=== PATIENT | female | born 1955 | race Caucasian/White ===

== ENCOUNTER 2018-06-16 14:56 | Inpatient (IN) ==
[2018-06-16] MEDS ORDERED: Sodium Chloride 0.9% 1,000 ML PRIMARY IV ONE (15:16)
--- NOTE | 2018-06-16 15:19 | PDOC ---
Nausea/Vomiting/Diarrhea HPI - General Chief Complaint: Nausea / Vomiting / Diarrhea Stated Complaint: nausea, vomiting, diarrheh Date Seen by Provider: 06/16/18 Time Seen by Provider: 15:10 Source: POSITIVE: Patient, EMS Exam Limitations: POSITIVE: No limitations Nurse's Notes Reviewed & Considered: Yes EMS Report Reviewed & Considered: Verbal - History of Present Illness Initial Comments: The patient is a 62-year-old female who presents to the emergency department by ambulance with complaints of nausea, vomiting and general malaise. The patient states that she has not felt well for the past 3 or 4 days. She had onset of nausea and vomiting associated with diarrhea on Tuesday. This has persisted for the last several days. She has been unable to take any of her medications including her insulin the past several days. She also has developed significant headache. She reports generalized weakness and malaise. She has had subjective fevers and chills. She denies urinary symptoms. She underwent hip replacement surgery in [place] which was a revision surgery in April and subsequently had developed a wound infection. She had been on antibiotics for 2-3 week period of time after that. She seemed to have recovered from that episode. She has continued pain in her lower back which is chronic as well as some continued pain in her right hip. She denies chest pain or shortness of breath or focal numbness or weakness in her extremities other than generalized weakness. - Patient Home Medications Home Medications: Home Medications Amlodipine Besylate 10 mg PO DAILY #30 tab 11/14/17 Chlorthalidone 25 mg PO DAILY #30 tab 11/14/17 Polyeth Glycol 3350 Packet [Miralax Packet] 17 gm PO DAILY #30 powd.pack 11/14/17 losartan 100 mg tablet 100 mg PO DAILY #90 tab 11/21/17 famotidine 20 mg tablet 20 mg PO BID 05/25/18 hydralazine 100 mg tablet 100 mg PO TID 05/25/18 insulin glargine (U-100) 100 unit/mL (3 mL) subcutaneous pen 6 unit SUBCUT BEDTIME ml 05/25/18 methocarbamol 750 mg tablet 750 mg PO BID tab 05/25/18 metoclopramide 10 mg tablet 10 mg PO Q6H PRN 05/25/18 nebivolol 20 mg tablet 20 mg PO QDAY 05/25/18 oxycodone 5 mg tablet 5 mg PO Q4-6H PRN #90 tab 05/25/18 venlafaxine 75 mg tablet 75 mg PO BID 05/25/18 Morphine Sulfate ER [MS Contin] 30 mg PO BID PRN 06/16/18 Venlafaxine HCl [Venlafaxine HCl ER] 150 mg PO DAILY 06/16/18 - Patient Allergies Allergies/Adverse Reactions: Allergies Allergy/AdvReac Type Severity Reaction Status Date / Time pregabalin [From Lyrica] Allergy SWELLING Verified 06/16/18 15:30 Past Medical History - heen HEENT History: Denies History Cardiovascular History: Hypertension Respiratory History: Denies History Gastrointestinal History: Gallbladder Disease Genitourinary History: Denies History Endocrine History: Type 2 Diabetes (insulin) Additional Endocrine History: sliding scale Musculoskeletal History: Back Pain, Back Injury, Other (please comment) Prosthesis or Implant: No Additional Musculoskeletal History: fx right humerous 2014 Neurological History: Denies History Blood Disorders: Denies History Psychiatric History: Depression, Anxiety Disorders History of Sexually Transmitted Diseases: No Cancer History: Denies History History of MDRO: No History of Other Communicable Diseases: No Alcohol Use: Rarely In the Past 12 Months, Have Used or Abuse Any Substance: None Previous Surgical History: Yes Type / Date of Surgery: hysterectomy, back surgery, tonsilectomy, adenoids, gallbladder, ovaries, L 2nd toe amputation, Rt humerus fx with ORIF, abscess Rt axillary Anesthesia Reactions: No Malignant Hyperthermia: No Significant Family History: No pertinent family hx Past Medical History Reviewed: Reviewed - No Changes ROS - Limitations ROS Limitations: No Limitations Constitution: REPORTS: Chills. DENIES: Fever (No documented fever and she has primarily been feeling cold) Cardiovascular: DENIES: Chest Pain, Heart Palpitations, Edema Respiratory: DENIES: Cough Non Productive, Cough Productive, Shortness Of Breath Neurological: REPORTS: Headache. DENIES: Numbness, Weakness Gastrointestinal: REPORTS: Nausea, Vomitting, Diarrhea. DENIES: Black Stools, Bloody Stools Endocrine: REPORTS: Fatigue Musculoskeletal: DENIES: Lower Extremity Swelling Genitourinary: REPORTS: Denies Symptoms Eyes: REPORTS: Denies Symptoms ENT: REPORTS: Denies Symptoms Skin: DENIES: Rash Nausea/Vomiting/Diarrhea Exam - General Appearance General Appearance: POSITIVE: Alert, Cooperative, No Acute Distress - HEENT HEENT: POSITIVE: Head Inspection Nml, Eyes Inspection Nml, Pharynx Inspect. Nml, Dry Mucous Membranes - Neck Neck: POSITIVE: Supple, Lymphadenopathy - Respiratory Respiratory: POSITIVE: No Respiratory Distress, Breath Sounds Normal - Cardiovascular Cardiovascular: POSITIVE: Regular Rate and Rhythm, Heart Sounds Normal Peripheral Pulses: Dorsalis-pedis (R): 2+, Dorsalis-pedis (L): 2+ - Abdomen Abdomen: Soft: (All Quadrants), Denies Tenderness: (All Quadrants), No Distention: (All Quadrants) - Skin Skin: POSITIVE: Intact, No Rash - Extremities Extremity: Normal ROM: (All Extremities), Normal Inspection: (All Extremities) - Neurological / Psychological Neurological: POSITIVE: Other (No focal neurologic deficits) N/V/D Progress - Results Reviewed by me Xrays/CTs/US Reviewed by me: Yes Discussed with Radiologist: Yes Radiology Findings: CT scan of her head shows no acute findings per radiologist. Chest x-ray shows no acute cardiopulmonary process per radiologist. Lab Results Reviewed by Me: Yes CBC and BMP: 06/16/18 15:30 06/16/18 15:30 Lab Results:: Laboratory Results 06/16/18 06/16/18 06/16/18 15:18 15:30 15:30 WBC 10.13 RBC 5.13 Hgb 13.1 Hct 40.9 MCV 79.7 L MCH 25.5 L MCHC 32.0 L RDW Std Deviation 50.8 H RDW Coeff of Amanda 17.6 H Plt Count 253 MPV 8.5 Immature Gran % (Auto) 0.1 Neut % (Auto) 85.0 H Lymph % (Auto) 11.9 Mcminn % (Auto) 2.5 L Eos % (Auto) 0.4 Baso % (Auto) 0.1 Immature Gran # (Auto) 0.01 Neut # (Auto) 8.61 Lymph # (Auto) 1.21 Mcminn # (Auto) 0.25 L Eos # (Auto) 0.04 Baso # (Auto) 0.01 WBC Morphology Comment Normal morphology Plt Morphology Comment Normal morphology RBC Morph Comment Normal morphology VBG pH 7.60 H VBG pCO2 20 L VBG HCO3 20 L VBG Base Excess -2 Sodium 142 Potassium 4.3 Chloride 107 Carbon Dioxide 21 L Anion Gap 14 BUN 41 H Creatinine 2.1 H Estimated GFR 24 BUN/Creatinine Ratio 19.52 Glucose 216 H Calculated Osmolality 310.0 H Lactic Acid Calcium 9.9 Magnesium 1.6 Total Bilirubin 0.6 AST 17 ALT 10 Alkaline Phosphatase 86 Troponin I C-Reactive Protein 1.0 H Total Protein 7.7 Albumin 4.5 Globulin 3.2 Albumin/Globulin Ratio 1.40 Ur Collection Type Urine Color Urine Clarity Urine pH Ur Specific [place] Urine Protein Urine Glucose (UA) Urine Ketones Urine Occult Blood Urine Nitrate Urine Bilirubin Urine Urobilinogen Ur Leukocyte Esterase Urine RBC Urine WBC Ur Squamous Epith Cells Ur Renal Epithelial Cell Urine Crystals Urine Bacteria Urine Casts Urine Mucus Urine Trichomonas Urine Yeast Ur Culture Indicated? 06/16/18 06/16/18 06/16/18 15:30 15:30 16:18 WBC RBC Hgb Hct MCV MCH MCHC RDW Std Deviation RDW Coeff of Amanda Plt Count MPV Immature Gran % (Auto) Neut % (Auto) Lymph % (Auto) Mcminn % (Auto) Eos % (Auto) Baso % (Auto) Immature Gran # (Auto) Neut # (Auto) Lymph # (Auto) Mcminn # (Auto) Eos # (Auto) Baso # (Auto) WBC Morphology Comment Plt Morphology Comment RBC Morph Comment VBG pH VBG pCO2 VBG HCO3 VBG Base Excess Sodium Potassium Chloride Carbon Dioxide Anion Gap BUN Creatinine Estimated GFR BUN/Creatinine Ratio Glucose Calculated Osmolality Lactic Acid 1.4 Calcium Magnesium Total Bilirubin AST ALT Alkaline Phosphatase Troponin I 0.049 H C-Reactive Protein Total Protein Albumin Globulin Albumin/Globulin Ratio Ur Collection Type Clean catch urine Urine Color Yellow Urine Clarity Clear Urine pH 7.5 Ur Specific [place] 1.015 Urine Protein >300 A Urine Glucose (UA) Negative Urine Ketones Negative Urine Occult Blood Trace-lysed H Urine Nitrate Negative Urine Bilirubin Negative Urine Urobilinogen 0.2 Ur Leukocyte Esterase Negative Urine RBC 2-4 Urine WBC 0-1 Ur Squamous Epith Cells Rare Ur Renal Epithelial Cell None Urine Crystals None Urine Bacteria None Urine Casts None Urine Mucus Rare Urine Trichomonas None Urine Yeast None Ur Culture Indicated? Culture not set EKG Interpreted/Reviewed By Me:: Yes EKG Interpretation:: POSITIVE: Normal Sinus Rhythm, Normal Rate, Normal QRS, Normal ST/T - Patient's Progress MDM / ED Course: An IV was established and she did receive a 1 L bolus of normal saline and she did appear to be clinically dehydrated. She was given a dose of Compazine 5 mg and Benadryl 25 mg IV for treatment of nausea and headache. In addition the patient is on chronic narcotics and has not taken her medications recently. She did receive morphine 4 mg IV. EKG done shortly after arrival shows normal sinus rhythm with no acute ST segment or T-wave changes. Her blood work reveals a mildly elevated BUN and creatinine with a creatinine of 2.1. Her white count is normal and her CRP is 1.0. Her catheter urinalysis does not show any evidence of obvious infection. CT scan of her head shows no acute findings per radiologist and chest x-ray shows no acute cardiopulmonary findings per radiologist. Her troponin is mildly elevated at 0.049. Findings were discussed with the patient. The patient is quite weak even after administration of fluids. The pain medication did help with her headache. Decision was made to admit for further hydration and treatment. Dr. Quintana has agreed to admit her. - Consult Counseled: POSITIVE: Patient, RE: Lab Results, RE: Radiology Results, RE: DX Patient Care Time - Estimated PCT Patient Care Time (In Minutes): 35 Vital Signs - Recent Vital Signs Vital Signs: Vital Signs (Last 8 hours) Temp Pulse Pulse Resp BP BP Pulse Ox 06/16/18 18:14 98.8 F 98 16 187/108 94 06/16/18 17:25 98.5 F 91 20 144/92 97 06/16/18 14:58 98.2 F 99 24 203/118 99 - VS Reviewed Vital Signs Reviewed: Yes Discharge Clinical Impression: Acute on chronic renal failure, Weakness, Dehydration, Gastroenteritis Discharge Disposition: Admit to Inpatient Condition: Fair Date Decision to Admit to Inpatient: 06/16/18 Time Decision to Admit to Inpatient: 17:30
--- NOTE | 2018-06-16 15:29 | EKG ---
[address] [address] Measurements Intervals Britton Rate: 96 P: 66 MS: 145 QRS: 48 QRSD: 92 T: 54 QT: 369 QTc: 423 Interpretive Statements SINUS RHYTHM Compared to ECG 10/04/2017 12:59:44 No significant changes Electronically Signed On 06-17-18 16:34:26 MST by Ki Betancourt [email or web address]
[2018-06-16 15:30] LABS: VENOUS PH 7.6 (7.32-7.42)
[2018-06-16] MEDS ORDERED: Prochlorperazine Edisylate Inj 10mg/2ml vial IVP ONE (15:30)
[2018-06-16 15:31] LABS: BASOPHILS # (AUTO) 0.01 10*3/UL; BASOPHILS % (AUTO) 0.1 % (0-1); EOSINOPHILS # (AUTO) 0.04 10*3/UL; EOSINOPHILS % (AUTO) 0.4 % (0-8); Hematocrit [HCT] 40.9 % (37.0-47.0); Hemoglobin [HGB] 13.1 g/dL (12.0-16.0); LYMPHOCYTES # (AUTO) 1.21 10*3/uL; MEAN CORPUSCULAR HEMOGLOBIN 25.5 PG (27-31); MEAN CORPUSCULAR VOLUME 79.7 FL (81-99); MEAN PLATELET VOLUME 8.5 FL (7.4-12.2); MONOCYTES # (AUTO) 0.25 10*3/UL (0.3-0.8); MONOCYTES % (AUTO) 2.5 % (5-15); NEUTROPHILS # (AUTO) 8.61 10*3/UL; RED BLOOD COUNT 5.13 10^6/uL (4.20-5.40)
[2018-06-16] MEDS ORDERED: diphenhydrAMINE 50 MG/1 ML VIAL IVP ONE (15:31)
[2018-06-16] MEDS ORDERED: MORPHINE SULFATE 4 MG/1 ML IVP ONE (15:32)
[2018-06-16 15:39] LABS: PLATELET MORPHOLOGY COMMENT NORMAL MORPHOLOGY (NORM); RBC MORPHOLOGY COMMENT NORMAL MORPHOLOGY (NORM); WBC MORPHOLOGY COMMENT NORMAL MORPHOLOGY (NORM)
[2018-06-16 15:45] LABS: BUN/CREATININE RATIO 19.52 (6-20); SERUM ALBUMIN 4.5 g/dL (3.5-4.8)
--- NOTE | 2018-06-16 16:02 | DI ---
XR CXR 1VW 06/16/2018 3:16 PM [place] [facility] [place] Comparison: 09/03/2017. Findings: A single frontal view of the chest is submitted. Images demonstrate normal aeration without focal consolidation. There is no large pneumothorax or ple ural effusion. The cardiomediastinal silhouette is within normal limits for technique. The osseous st ructures are not significantly changed. Impression: No radiographic evidence of acute cardiopulmonary disease.
--- NOTE | 2018-06-16 16:06 | DI ---
CT Head WO Contrast 06/16/2018 3:16 PM History: [facility] – [place] ^headache, elevated BP Comparison: None. Procedure: Noncontrast axial CT images through the head were obtained at 5 mm with coronal and sagitt al reformations. Bony algorithm axial reconstructions were also provided. Findings: There is no intracranial hemorrhage or extra-axial fluid collection. The ventricles are sy mmetric. There is mild global atrophy which is within the expected range for age. Decreased attenua tion in the periventricular and subcortical white matter is consistent with mild chronic small vessel ischemic changes. There is otherwise normal eugene-white differentiation without focal mass or mass-e ffect. The visualized portions of the paranasal sinuses and mastoid air cells are clear. Review of t he osseous structures demonstrate no depressed calvarial fracture or aggressive osseous lesion. The f acial soft tissues are unremarkable. Impression: 1. No acute intracranial findings. 2. Chronic changes as above.
[2018-06-16 16:25] LABS: BILIRUBIN,URINE NEGATIVE (NEG); CLARITY,URINE CLEAR (CLEAR); COLOR,URINE YELLOW (Y); GLUCOSE, URINE (UA) NEGATIVE (NEG); OCCULT BLOOD,URINE Trace-lysed (NEG); PH,URINE 7.5 (5.0-8.5); PROTEIN,URINE >300 mg/dl (NEG); UROBILINOGEN,URINE 0.2 EU/dL (0.2)
[2018-06-16 16:32] LABS: SQUAMOUS EPITHELIAL CELL,UR RARE; URINE SAMPLE TYPE CLEAN CATCH URINE; WBC,URINE 0-1
--- NOTE | 2018-06-16 17:31 | PDOC ---
HPI - History of Present Illness Date of Service: 06/16/18 Time of Service: 18:40 Chief Complaint: Nausea, vomiting and diarrhea of 4-5 days duration History of Present Illness: This is a 62 years old female with medical history significant for history of hypertension, diabetes, chronic renal insufficiency and chronic pain syndrome who had right hip replacement done to treat a right hip fracture surgery that was complicated by nonunion, the replacement surgery was done in February in [place] this was complicated by a superficial wound infection for which she needed antibiotic treatment. She said she was released last month from rehabilitation in [place], she's been home here in [place] since early May. the last 4-5 days she's been vomiting and having diarrhea no abdominal pain though. She said the last time she took her medications was 2 days ago. She is also complaining from headache at the back of her head. She was brought into the ER and was found to be dehydrated with worsening renal failure she was given fluids and was admitted. She is denying pain currently but looks very tired. Denying shortness of breath or chest pain. Past Medical History Medical History: 1. 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 2. Hypertension. 3. Chronic back pain on pain medication for the past 10 years. 4. Obesity. 5. Depression. 6. Hirsutism. 7. 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 This was complicated by infection of the wound and she was on a course of antibiotic treatment. Surgical History: 1. Cholecystectomy. 2. Previous back surgery. 3. Appendectomy. 4. Hysterectomy and oophorectomy for endometriosis. 5. Partial left toe amputation for osteomyelitis. 6. Right shoulder surgery. 7. 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 Mother had diabetes Past Social History: Does not smoke or drink alcohol. No children. She is . She does by herself in an apartment here in [facility]. Tobacco Use: Never Smoker In the Past 12 Months, Have Used or Abuse Any of the Following Substance: None Alcohol Use: None Medication / Allergies Home Medications: Home Medications Medication Instructions Recorded Confirmed Type Amlodipine Besylate 10 mg PO DAILY #30 tab 11/14/17 06/16/18 Rx Chlorthalidone 25 mg PO DAILY #30 tab 11/14/17 06/16/18 Rx Polyeth Glycol 3350 Packet 17 gm PO DAILY #30 powd.pack 11/14/17 06/16/18 Rx [Miralax Packet] losartan 100 mg tablet 100 mg PO DAILY #90 tab 11/21/17 06/16/18 Rx famotidine 20 mg tablet 20 mg PO BID 05/25/18 06/16/18 History hydralazine 100 mg tablet 100 mg PO TID 05/25/18 06/16/18 History insulin glargine (U-100) 100 6 unit SUBCUT BEDTIME ml 05/25/18 06/16/18 History unit/mL (3 mL) subcutaneous pen methocarbamol 750 mg tablet 750 mg PO BID tab 05/25/18 06/16/18 History metoclopramide 10 mg tablet 10 mg PO Q6H PRN 05/25/18 06/16/18 History nebivolol 20 mg tablet 20 mg PO QDAY 05/25/18 06/16/18 History oxycodone 5 mg tablet 5 mg PO Q4-6H PRN #90 tab 05/25/18 06/16/18 Rx venlafaxine 75 mg tablet 75 mg PO BID 05/25/18 06/16/18 History Morphine Sulfate ER [MS Contin] 30 mg PO BID PRN 06/16/18 06/16/18 History Venlafaxine HCl [Venlafaxine HCl 150 mg PO DAILY 06/16/18 06/16/18 History ER] Allergies/Adverse Reactions: Allergies Allergy/AdvReac Type Severity Reaction Status Date / Time pregabalin [From Lyrica] Allergy SWELLING Verified 06/16/18 15:30 Review of Systems - Review of Systems All Systems: Reviewed & No Additional Complaints Except as Stated Exam - Vitals Vital Signs: Vital Signs Temperature 98.2 F Temperature Source Oral Pulse Rate [Pulse Oximeter 99 Left] Respiratory Rate 24 Blood Pressure [Left Arm] 203/118 Pulse Ox 99 Oxygen Delivery Method Room Air Height 5 ft 8 in Weight 200 lb - General General Appearance: Obese Additional General Exam Details: She looks tired. - Head Head Exam: Normal Inspection, Atraumatic - Eye Eye Exam: POSITIVE: Normal Appearance - ENT ENT Exam: POSITIVE: Mucous Membranes Dry - Neck Neck Exam: Normal Inspection - Respiratory Respiratory Exam: POSITIVE: Clear to Auscultation - Bilaterally - Cardiovascular Cardiovascular Exam: POSITIVE: RRR - GI/Abdominal GI/Abdominal Exam: POSITIVE: Normal Bowel Sounds, Non Tender, Non Distended, Soft, No Organomegaly - Rectal Rectal Exam: POSITIVE: Deferred - External Exam: POSITIVE: Deferred Exam: POSITIVE: Deferred - Extremities Extremities Exam: POSITIVE: Normal Inspection - Back Back Exam: POSITIVE: Normal Inspection - Neurological Neurological Exam: POSITIVE: Oriented x 3, CN II-XII Intact, No Facial Droop, Speech Intact / Clear Additional Neurological Exam Details: Sleepy but arousable - Psychiatric Psychiatric Exam: POSITIVE: Flat Affect - Integumentary Integumentary Exam: POSITIVE: Dry Results - Labs CBC and BMP: 06/17/18 04:15 06/17/18 04:15 - EKG Data -: EKG Interpreted by Me Rate: Normal EKG Shows Normal: Sinus Rhythm - Imaging Status: Report Reviewed by Me (CT head 1. No acute intracranial findings. 2. Chronic changes as above. Chest X ray Impression: No radiographic evidence of acute cardiopulmonary disease.) Assessment and Plan - Patient Problems (1) Acute on chronic renal failure Current Visit: Yes Status: Acute Comment: Probably secondary to dehydration will put her on IV fluids. Repeat her labs in the morning. Code(s): N17.9 - Acute kidney failure, unspecified; N18.9 - Chronic kidney disease, unspecified (2) Nausea vomiting and diarrhea Current Visit: Yes Status: Acute Comment: Maybe gastroenteritis but since she gave a history of antibiotic leona tment will send for C. difficile. Code(s): R11.2 - Nausea with vomiting, unspecified; R19.7 - Diarrhea, unspecified (3) Hypertension Current Visit: No Status: Chronic Comment: Blood pressure was really high when she came into the ER, I saw a note from Dr. Sotelo in May and her blood pressure was also elevated at 200 he mentioned that she was not taking her blood pressure medication. She told me that she is not taking her blood pressure medication only for the last 2 days because of the vomiting. I think will restart her on hydralazine tonight and see her response and then will decide if we need to give additional blood pressure medication. Code(s): I10 - Essential (primary) hypertension Qualifiers: Hypertension type: essential hypertension Qualified Code(s): I10 - Essentia l (primary) hypertension (4) Diabetes Current Visit: Yes Status: Acute Comment: I think will watch her blood sugar. She is not eating. Will write for sliding scale as needed. We'll hold the Lantus. Code(s): E11.9 - Type 2 diabetes mellitus without complications (5) Chronic pain syndrome Current Visit: No Status: Chronic Comment: She is on morphine and oxycodone although she is not taking those. I think will write for PRN oxycodone for now. She is sleepy. So I think we'll hold off on the morphine tonight. Code(s): G89.4 - Chronic pain syndrome
[2018-06-16] MEDS ORDERED: LIDOCAINE W/ SODIUM BICARB 0.5 ML SYR SUBD PRN (17:53)
[2018-06-16] MEDS ORDERED: ONDANSETRON 4 MG/2 ML VIAL IVP PRN (17:53)
[2018-06-16] MEDS: Sodium Chloride 0.9% 1,000 ML PRIMARY IV SCH (18:57)
[2018-06-16] MEDS: oxyCODONE IR Tab 5 MG TAB PO PRN (19:15)
[2018-06-16] MEDS: FAMOTIDINE 20 MG TABLET PO SCH (20:24)
[2018-06-16] MEDS ORDERED: AmLODIPine Tab 5 MG TABLET PO ONE (21:32)
[2018-06-17] MEDS: CloNIDine Tab 0.1 MG TABLET PO PRN ×2 (00:13→05:44)
[2018-06-17] MEDS: NYSTATIN 15 GM POWDER TOPICAL PRN ×3 (00:13→20:15)
[2018-06-17] MEDS: oxyCODONE IR Tab 5 MG TAB PO PRN ×4 (00:27→20:14)
[2018-06-17] MEDS: Sodium Chloride 0.9% 1,000 ML PRIMARY IV SCH ×2 (02:35→11:22)
[2018-06-17 04:59] LABS: BASOPHILS # (AUTO) 0.01 10*3/UL; BASOPHILS % (AUTO) 0.1 % (0-1); EOSINOPHILS # (AUTO) 0.15 10*3/UL; EOSINOPHILS % (AUTO) 1.9 % (0-8); Hematocrit [HCT] 35.9 % (37.0-47.0); LYMPHOCYTES # (AUTO) 2.03 10*3/uL; MEAN CORPUSCULAR HGB CONC 30.6 g/dL (33-37); MEAN CORPUSCULAR VOLUME 81.6 FL (81-99); MEAN PLATELET VOLUME 8.8 FL (7.4-12.2); MONOCYTES # (AUTO) 0.32 10*3/UL (0.3-0.8); NEUTROPHILS # (AUTO) 5.58 10*3/UL; NEUTROPHILS % (AUTO) 68.8 % (50-80)
[2018-06-17 05:08] LABS: PLATELET MORPHOLOGY COMMENT NORMAL MORPHOLOGY (NORM); RBC MORPHOLOGY COMMENT NORMAL MORPHOLOGY (NORM); WBC MORPHOLOGY COMMENT NORMAL MORPHOLOGY (NORM)
[2018-06-17 05:10] LABS: BUN/CREATININE RATIO 19.47 (6-20); SERUM ALBUMIN 3.5 g/dL (3.5-4.8)
[2018-06-17] MEDS: Insulin Lispro Flexpen 300 UNIT/3 ML INSULN.PEN SUBCUT SCH ×3 (07:28→15:56)
--- NOTE | 2018-06-17 08:08 | PDOC(PROG) ---
Date of Service: 06/17/18 Time of Service: 08:10 Interval History: Subjective Patient feels better today. No more vomiting since she's been here. No more diarrhea. Denying abdominal pain. Objective : Data - Labs CBC and BMP: 06/17/18 04:15 06/17/18 04:15 Objective : Exam - General General Appearance: No Acute Distress, Cooperative, Obese - Head Head Exam: Normal Inspection Additional Head Exam Details: Hirsutism noted - Eye Eye Exam: Normal Appearance - ENT ENT Exam: Normal Exam - Neck Neck Exam: Normal Inspection - Respiratory Respiratory Exam: Clear to Auscultation - Bilaterally - Cardiovascular Cardiovascular Exam: RRR - GI/Abdominal GI/Abdominal Exam: Normal Bowel Sounds, Non Distended, Soft, No Organomegaly Additional GI/Abdominal Exam Details: Minimal epigastric tenderness - Rectal Rectal Exam: Deferred - External Exam: Deferred Exam: Deferred - Extremities Extremities Exam: Normal Inspection - Back Back Exam: Normal Inspection - Neurological Neurological Exam: Alert, Oriented x 3, CN II-XII Intact, No Facial Droop, Speech Intact / Clear, Moves All Extremities Equally - Psychiatric Psychiatric Exam: Flat Affect - Integumentary Integumentary Exam: Normal Color Assessment and Plan - Patient Problems (1) Acute on chronic renal failure Current Visit: Yes Status: Acute Comment: Seem to be improving we'll cut back on his fluid. Will repeat her kidney function tomorrow. Code(s): N17.9 - Acute kidney failure, unspecified; N18.9 - Chronic kidney disease, unspecified (2) Nausea vomiting and diarrhea Current Visit: Yes Status: Acute Comment: Seems to be resolved. Code(s): R11.2 - Nausea with vomiting, unspecified; R19.7 - Diarrhea, unspecified (3) Hypertension Current Visit: No Status: Chronic Comment: Blood pressure still elevated. She'll get her amlodipine, bystolic and hydralazine today. And we'll watch her blood pressure Code(s): I10 - Essential (primary) hypertension Qualifiers: Hypertension type: essential hypertension Qualified Code(s): I10 - Essential (primary) hypertension (4) Diabetes Current Visit: Yes Status: Acute Comment: Continue sliding scale and will continue holding the Lantus Code(s): E11.9 - Type 2 diabetes mellitus without complications (5) Chronic pain syndrome Current Visit: No Status: Chronic Comment: Continue the oxycodone as needed for now. Code(s): G89.4 - Chronic pain syndrome (6) Weakness Current Visit: Yes Status: Acute Comment: We'll ask PT and OT to work with her. Code(s): R53.1 - Weakness (7) DVT prophylaxis Current Visit: Yes Status: Acute Comment: We'll put her on heparin. (8) Elevated troponin Current Visit: Yes Status: Acute Comment: Unclear reason. May need testing later on as an outpatient. She is denying chest pain. Code(s): R74.8 - Abnormal levels of other serum enzymes
[2018-06-17] MEDS: VENLAFAXINE XR 75 MG CAP PO SCH (09:15)
[2018-06-17] MEDS: FAMOTIDINE 20 MG TABLET PO SCH ×2 (09:15→20:14)
[2018-06-17] MEDS: HEPARIN 5000 UNIT/1 ML SUBCUT SCH ×2 (09:15→15:51)
[2018-06-17] MEDS: NEBIVOLOL HCL 5 MG TABLET PO SCH (09:15)
[2018-06-18] MEDS: oxyCODONE IR Tab 5 MG TAB PO PRN ×5 (00:53→23:31)
[2018-06-18] MEDS: CloNIDine Tab 0.1 MG TABLET PO PRN ×2 (00:53→07:32)
[2018-06-18] MEDS: Sodium Chloride 0.9% 1,000 ML PRIMARY IV SCH (00:53)
[2018-06-18] MEDS: HEPARIN 5000 UNIT/1 ML SUBCUT SCH ×4 (01:12→23:31)
[2018-06-18 04:50] LABS: BUN/CREATININE RATIO 21.76 (6-20)
[2018-06-18] MEDS: Insulin Lispro Flexpen 300 UNIT/3 ML INSULN.PEN SUBCUT SCH ×3 (07:21→16:24)
[2018-06-18] MEDS: NEBIVOLOL HCL 5 MG TABLET PO SCH (08:11)
[2018-06-18] MEDS: VENLAFAXINE XR 75 MG CAP PO SCH (08:12)
[2018-06-18] MEDS: FAMOTIDINE 20 MG TABLET PO SCH ×2 (08:12→20:19)
--- NOTE | 2018-06-18 08:32 | PDOC(PROG) ---
Date of Service: 06/18/18 Time of Service: 08:30 Interval History: Subjective Patient feels better, no more vomiting. She did have one loose stool yesterday. No abdominal pain. No bowel movement yet today. Feels stronger. Objective : Data - Labs CBC and BMP: 06/17/18 04:15 06/18/18 04:05 Objective : Exam - General General Appearance: No Acute Distress, Obese Additional General Exam Details: Hirsutism noted - Head Head Exam: Normal Inspection - Eye Eye Exam: Normal Appearance - ENT ENT Exam: Normal Exam - Neck Neck Exam: Normal Inspection - Respiratory Respiratory Exam: Clear to Auscultation - Bilaterally - Cardiovascular Cardiovascular Exam: RRR - GI/Abdominal GI/Abdominal Exam: Normal Bowel Sounds, Non Tender, Non Distended, Soft, No Organomegaly - Rectal Rectal Exam: Deferred - External Exam: Deferred - Extremities Extremities Exam: Normal Inspection - Back Back Exam: Normal Inspection - Neurological Neurological Exam: Alert, Oriented x 3, CN II-XII Intact, No Facial Droop, Speech Intact / Clear, Moves All Extremities Equally - Psychiatric Psychiatric Exam: Normal Affect - Integumentary Integumentary Exam: Normal Color Assessment and Plan - Patient Problems (1) Acute on chronic renal failure Current Visit: Yes Status: Acute Comment: Seem to be stabilized. I think we'll stop her IV fluid. Will watch her another night see how things looks tomorrow and then will decide whether to keep her or discharge her. Code(s): N17.9 - Acute kidney failure, unspecified; N18.9 - Chronic kidney disease, unspecified (2) Nausea vomiting and diarrhea Current Visit: Yes Status: Acute Comment: This is resolved. Code(s): R11.2 - Nausea with vomiting, unspecified; R19.7 - Diarrhea, unspecified (3) Hypertension Current Visit: No Status: Chronic Comment: Blood pressure still elevated. She did say that there was a recent change in her blood pressure medication however she does not know exactly what changes were made. We'll try to see if we can get from the pharmacy what medication she is suppose to be on. will Restart her losartan. Code(s): I10 - Essential (primary) hypertension Qualifiers: Hypertension type: essential hypertension Qualified Code(s): I10 - Essential (primary) hypertension (4) Diabetes Current Visit: Yes Status: Acute Comment: Continue sliding scale for now. Code(s): E11.9 - Type 2 diabetes mellitus without complications (5) Chronic pain syndrome Current Visit: No Status: Chronic Comment: We'll try to see whether we can get her long-acting morphine as she is on that and I think she can restart taking it. Code(s): G89.4 - Chronic pain syndrome (6) Weakness Current Visit: Yes Status: Acute Comment: Continue PT and OT Code(s): R53.1 - Weakness (7) DVT prophylaxis Current Visit: Yes Status: Acute Comment: She is on heparin (8) Elevated troponin Current Visit: Yes Status: Acute Comment: This need to be investigated as an outpatient Code(s): R74.8 - Abnormal levels of other serum enzymes
[2018-06-18] MEDS ORDERED: MORPHINE 30 MG PO SCH (09:00)
[2018-06-18] MEDS: LOSARTAN 50 MG TABLET PO SCH (09:27)
[2018-06-18] MEDS: MORPHINE SULFATE 30 MG ER TABLET PO SCH ×2 (11:25→20:19)
[2018-06-18] MEDS: NYSTATIN 15 GM POWDER TOPICAL PRN (20:20)
[2018-06-18] MEDS ORDERED: Insulin Glargine SoloStar Inj 100 UNIT/ML INSULN.PEN SUBCUT SCH (21:00)
[2018-06-19] MEDS: Insulin Lispro Flexpen 300 UNIT/3 ML INSULN.PEN SUBCUT SCH (07:02)
--- NOTE | 2018-06-19 07:39 | DCSUMMARY ---
Hospitalization Summary Admit Date: 06/16/2018 Discharge Date: 06/19/18 Hospital Course: Discharge diagnosis 1. Probable gastroenteritis resolved 2. Acute on chronic renal failure improved 3. History of diabetes 4. History of hypertension 5. History of chronic back pain on pain medication 6. Hirsutism 7. 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 Minimal elevation troponin he follow-up as an outpatient Hospital course This is a 62 years old female with medical history significant for history of hypertension, diabetes, chronic renal insufficiency and chronic pain syndrome who had right hip replacement done to treat nonunion of right hip fracture surgery, that surgery was complicated by superficial infection of the wound that needed antibiotic treatment. She was released last month from a rehabilitation in [place] she has been home in [place] since early May. The Last 4-5 days before admission she's been vomiting and having diarrhea but no abdominal pain though. She was not taking her medication for 2 days. She came into the ER was found to have worsening renal failure and hypertension. She was also dehydrated was giving fluids and was admitted to the hospital. Exam was remarkable for evidence of dehydration. She was given fluids restarted her medication and started physical therapy. There was a gradual improvement in her symptoms. She worked with physical therapy. And on the day of discharge was doing better there was no symptoms. Her diarrhea improved so we could not send a stool sample to the lab.. Exam was unremarkable on discharge we discharged her home to follow-up with her primary. There was a minimal elevation in her troponin when she came in and that's persisted. His need to be follow-up later on as an outpatient. Discharge instruction Diet regular Activity as started Medications Medication Instructions Recorded Confirmed Type Amlodipine Besylate 10 mg PO DAILY #30 tab 11/14/17 06/16/18 Rx Chlorthalidone 25 mg PO DAILY #30 tab 11/14/17 06/16/18 Rx Polyeth Glycol 3350 Packet 17 gm PO DAILY #30 powd.pack 11/14/17 06/16/18 Rx [Miralax Packet] losartan 100 mg tablet 100 mg PO DAILY #90 tab 11/21/17 06/16/18 Rx famotidine 20 mg tablet 20 mg PO BID 05/25/18 06/16/18 History hydralazine 100 mg tablet 100 mg PO TID 05/25/18 06/16/18 History insulin glargine (U-100) 100 6 unit SUBCUT BEDTIME ml 05/25/18 06/16/18 History unit/mL (3 mL) subcutaneous pen methocarbamol 750 mg tablet 750 mg PO BID tab 05/25/18 06/16/18 History metoclopramide 10 mg tablet 10 mg PO Q6H PRN 05/25/18 06/16/18 History nebivolol 20 mg tablet 20 mg PO QDAY 05/25/18 06/16/18 History oxycodone 5 mg tablet 5 mg PO Q4-6H PRN #90 tab 05/25/18 06/16/18 Rx venlafaxine 75 mg tablet 75 mg PO BID 05/25/18 06/16/18 History Morphine Sulfate ER [MS Contin] 30 mg PO BID PRN 06/16/18 06/16/18 History Venlafaxine HCl [Venlafaxine HCl 150 mg PO DAILY 06/16/18 06/16/18 History ER] Follow-up with PCP in 1-2 weeks Condition at discharge was stable for discharge Exam - Vitals Vital Signs: Vital Signs Temperature 97.9 F Temperature Source Temporal Artery Scan Pulse Rate [Apical] 78 Pulse Rate [Pulse Oximeter 65 Left] Pulse Rate 91 Respiratory Rate 18 Blood Pressure [Right Arm] 177/87 Blood Pressure [Left Arm] 149/81 Blood Pressure 144/92 Pulse Ox 91 Oxygen Delivery Method Room Air Height 5 ft 8 in Weight 202 lb 9.6 oz - General General Appearance: No Acute Distress, Obese - Head Additional Head Exam Details: Hirsutism noted - Eye Eye Exam: POSITIVE: Normal Appearance - ENT ENT Exam: POSITIVE: Normal Exam - Neck Neck Exam: Normal Inspection - Respiratory Respiratory Exam: POSITIVE: Clear to Auscultation - Bilaterally - Cardiovascular Cardiovascular Exam: POSITIVE: RRR - GI/Abdominal GI/Abdominal Exam: POSITIVE: Normal Bowel Sounds, Non Tender, Non Distended, Soft, No Organomegaly - Rectal Rectal Exam: POSITIVE: Deferred - External Exam: POSITIVE: Deferred - Extremities Extremities Exam: POSITIVE: Normal Inspection - Back Back Exam: POSITIVE: Normal Inspection - Neurological Neurological Exam: POSITIVE: Alert, Oriented x 3, CN II-XII Intact, No Facial Droop, Speech Intact / Clear, Moves All Extremities Equally - Psychiatric Psychiatric Exam: POSITIVE: Normal Affect - Integumentary Integumentary Exam: POSITIVE: Normal Color Patient Problems - Patient Problem List (1) Acute on chronic renal failure Status: Acute Code(s): N17.9 - Acute kidney failure, unspecified; N18.9 - Chronic kidney disease, unspecified Category: Medical (2) Nausea vomiting and diarrhea Status: Acute Code(s): R11.2 - Nausea with vomiting, unspecified; R19.7 - Diarrhea, unspecified Category: Medical (3) Hypertension Status: Chronic Comment: Continue same medication. Code(s): I10 - Essential (primary) hypertension Qualifiers: Hypertension type: essential hypertension Qualified Code(s): I10 - Essential (primary) hypertension Category: Medical (4) Diabetes Status: Acute Code(s): E11.9 - Type 2 diabetes mellitus without complications Category: Medical (5) Chronic pain syndrome Status: Chronic Comment: Same medication. Code(s): G89.4 - Chronic pain syndrome Category: Medical (6) Weakness Status: Acute Code(s): R53.1 - Weakness Category: Medical (7) DVT prophylaxis Status: Acute Category: Medical (8) Elevated troponin Status: Acute Code(s): R74.8 - Abnormal levels of other serum enzymes Category: Medical
[2018-06-19] MEDS: NEBIVOLOL HCL 5 MG TABLET PO SCH (08:26)
[2018-06-19] MEDS: LOSARTAN 50 MG TABLET PO SCH (08:26)
[2018-06-19] MEDS: VENLAFAXINE XR 75 MG CAP PO SCH (08:26)
[2018-06-19] MEDS: FAMOTIDINE 20 MG TABLET PO SCH (08:26)
[2018-06-19] MEDS: HEPARIN 5000 UNIT/1 ML SUBCUT SCH (08:26)
[2018-06-19] MEDS: MORPHINE SULFATE 30 MG ER TABLET PO SCH (08:27)
--- NOTE | 2018-06-19 14:40 | PTI REPORT ---
Thank you for the referral of Concepcion Vera. She was seen on 06/18/18 for an inpatient evaluation secondary to weakness. SUBJECTIVE: The patient is a 62-year-old female who presented to the hospital secondary to illness and feeling weak. The patient states she has felt like she has had flu like symptoms for the last two weeks and has progressively gotten weaker and had some difficulties with getting around and caring for herself. The patient states that she lives at [facility] [place] where she does live by herself and is able to care for herself independently. She does utilize a front wheeled and sometimes a four wheeled walker for ambulation. The patient did have a right hip fracture and in the last few months underwent a right total hip replacement with which she has been doing fair; however, she states she hasn't been able to go to physical therapy in the last few weeks secondary to her illness. The patient does report a pain level of 8/10 on the verbal analog scale (0=no pain, 10=worst pain) today, she states primarily in her low back. She states she has been up a little bit with nursing staff, but has not done too much activity since her admission. PAST MEDICAL HISTORY: Past medical history can be found in the patient's medical record. OBJECTIVE FINDINGS: General observations: The patient was alert and oriented to setting upon PT arrival. The patient was supine in bed with head of bed elevated. Bed mobility: The patient was able to transfer from a supine to seated edge of bed position with stand by assist x1 for safety and just required additional time. Once sitting edge of bed, the patient demonstrated good seated edge of bed balance. Strength: The patient was able to perform manual muscle testing for bilateral lower extremities. The patient's right hip demonstrated strength of 2-/5. Right knee and ankle demonstrated strength of 3+/5, and left hip, knee, and ankle demonstrated strength of 3+/5. The patient does have difficulty performing any kind of hip flexion on the right side secondary to her fracture and surgery over this last year. She does still have quite a bit of weakness of the right hip. Transfers: The patient was able to move from a seated to standing position with contact guard assist x1 for safety. The patient demonstrated fair standing balance with widened base of support and hand hold assist x2 on the walker. ASSESSMENT: The patient has fair rehab potential secondary to her age and past medical history. Problem List: Weakness Decreased endurance/activity tolerance Short-Term Goals: To be met by discharge from inpatient: Patient will be able to transfer from bed to stand safely and independently. Patient will be able to ambulate at least 150 feet with walker safely and independently. Patient will be able to tolerate 30 minutes of physial therapy activity for general cardiovascular and strengthening for bilateral upper and lower extremities. Long-Term Goals: To be met following discharge from inpatient: Patient is encouraged to continue with outpatient physical therapy for rehab on her total hip replacement to improve her overall mobility and strength. TREATMENT PLAN: Patient will be seen B.I.D during the week and one time per day over the weekend as an inpatient to address the above goals and objectives. INITIAL TREATMENT: Treatment today consisted of the initial evaluation followed by one unit of therapeutic exercise. The patient was brought down to therapy where she performed the UBE x3 minutes forward and 3 minutes backward, sit to stands x5 from a wheelchair with use of the arms, and strengthening in a seated position for bilateral lower extremities with two pound weights on each leg consisting of long arc quads, marches, resisted hamstring curls, and ankle pumps x12. The patient also performed bilateral upper extremity strengthening including biceps bilaterally with three pound weights x10 and horizontal abduction x10 bilaterally. Once the patient was finished with her exercises she was brought back upstairs and transferred back into bed. She did require additional time to transfer from seated to supine as she does have some difficulties lifting the right lower extremity and did need to utilize her arms to help lift it into the bed. Once patient was back in bed, the bed alarm was set and call light was placed within reach. [facility] HOSPITALJoel
--- NOTE | 2018-06-19 15:17 | PT.PROG ---
Progress Note Progress Note: S. Patient stated that she is feeling better today she feels that she is ready to go home. O. Patient ambulated 150 feet around the nurses station, she was left in bed with alarm and call light. A. Patient was able to ambulate with ease, she would benefit from outpatient therapy. P. Patient is cleared from therapy at this time.
== END 2018-06-19 10:32 | disposition home or self-care (01) | DRG 392 ==
LOC: ER 14:56 → MED/SURG 17:18
PROVIDERS: ADMIT Internal Medicine; ATTEND Internal Medicine